=== PATIENT | female | born 1970 | race Caucasian/White ===

== ENCOUNTER 2016-07-16 07:47 | Emergency (ER) | payer SELFPAY ==
[2016-07-16 08:41] VITALS: TEMP 98.1; BMI 36.9
--- NOTE | 2016-07-16 10:04 | EDPRACDOC ---
- General Information Chief Complaint: Foot Pain Stated Complaint: LEFT FOOT PAIN Time Seen by Provider: 07/16/16 09:58 Mode of Arrival: Ambulance Home Medications: Home Medications Oxycodone HCl [Roxicodone] 5 mg PO Q4 PRN #10 tablet 07/16/16 Allergies/Adverse Reactions: Allergies Allergy/AdvReac Type Severity Reaction Status Date / Time amoxicillin Allergy Hives* Verified 04/22/16 14:13 codeine Allergy Hives* Verified 04/22/16 14:13 Penicillins Allergy Hives* Verified 04/22/16 14:13 prednisone Allergy Edema-Gener Verified 04/22/16 14:13 alized Sulfa (Sulfonamide Allergy Hives* Verified 04/22/16 14:13 Antibiotics) - History of Present Illness Onset: SUNDAY HPI: PT WAS AT WORK ON SUNDAY. AMBULATING. FELT A POP. PAIN DEVELPED BALL OF LEFT FOOT. PAIN COMES AND GOES. 01/18 CURRENTLY. SOME PAIN LEFT KNEE ( ARTHRITIS PER PT) ED Past Medical History - History Reviewed Yes Nurses notes reviewed and agree except as marked - Patient Medical History Psychological History: Denies: Depression Surgical History: Reports: Cholecystectomy. Denies: Hysterectomy - Social Medical History Smoking Status: Light tobacco smoker (less than 5/day) EDM Review of Systems - Review of Systems ROS Negative Except as Marked: Yes All systems reviewed and were negative except as marked - Physical Exam Constitutional: Alert (Awake), No apparent distress Oriented to: Time, Person, Place Last recorded Vital Signs: Last Vital Signs Temp 98.1 F 07/16/16 08:35 Pulse 80 07/16/16 08:35 Resp 18 07/16/16 08:35 BP 146/67 07/16/16 08:35 Pulse Ox 99 07/16/16 08:35 Oxygen Pulse Oxygen Saturation 99 O2 Device Room Air Oxygen Flow Rate Fraction of Inspired Oxygen ( FIO2) - HEENT Head: Normal ( normocephalic) Eye Exam: Normal (PERRL, EOMI, Sclera white) Oropharynx: Normal (Pharynx:Moist without exudate,Gums-no swelling) Nose: No Symptoms Reported (septum midline) Neck: Normal (FROM, trachea at midline) - Respiratory/Cardiovascular Respiratory: Normal - CTA (BBS clear to auscultation without adventitious sounds ) Cardiovascular: Normal (RRR without murmur, gallop or rub) - GI Gutierrez's Sign: Negative - Musculoskeletal Back: Normal (Non-Tender) Extremities: Normal (Normal tone, Pulses 2+ No cyanosis or edema, FROM) - Integumentary Skin: Normal, Warm, Dry Lymphatics: Normal (no adenopathy) - Neurologic Memory Impaired: Normal Motor Function: Normal (Normal tone, Pulses 2+ No cyanosis or edema, FROM) Cranial Nerve: Normal (CN II-X11 intact sensation, strength 5/5) Cerebellar: Normal Mood Description: Normal Perception: Normal ED Foot Problem Phys Exam - Musculoskeletal Foot: Other (PLANTAR BALL OF FOOT TTP. PINK. BRISK CAP REFILL. NO ECCHYMOSIS OR EDEMA.) Decision Time to Discharge: 11:12 - Departure Yes I personally saw and evaluated the patient. Disposition: Home Condition: Stable Final Diagnosis: Left foot pain Instructions: RICE Therapy (ED) Education/Counseling Given To: Patient Education/Counseling Given Regarding: Diagnosis, Treatment Referrals: Sylvie Connelly DPM [Staff Provider No Admit] - One Week Austin Jarrell DPM [Staff Physician] - One Week Prescriptions: New Oxycodone HCl [Roxicodone] 5 mg PO Q4 PRN #10 tablet PRN Reason: Pain Forms: Excuse Note
--- NOTE | 2016-07-16 11:03 | DIRPT ---
CLINICAL DATA: Plantar foot pain. EXAM: LEFT FOOT - COMPLETE 3+ VIEW COMPARISON: None. FINDINGS: Normal alignment no fracture. Mild midfoot degenerative change. Calcaneal spurring. IMPRESSION: No acute abnormality Electronically Signed By: Oniel Hidalgo M.D. On: 07/16/2016 11:01
[2016-07-16 11:53] VITALS: BP 138/73; PULSE 79
== END 2016-07-16 11:45 | disposition home or self-care (01) ==
LOC: ED 07:47
DX: M79.672 Pain in left foot (principal)
CPT/HCPCS: 99283